=== PATIENT | female | born 1975 | race Caucasian/White ===

== ENCOUNTER 2018-06-09 17:54 | Emergency (ER) | payer OTHER ==
[2018-06-09] MEDS ORDERED: LORazepam 2 MG/ML SDV IVPUSH ONE (17:56)
[2018-06-09] MEDS ORDERED: Sodium Chloride 0.9% 2.5 ML Syringe FLUSH PRN (17:56)
[2018-06-09] MEDS ORDERED: Sodium Chloride 0.9% 10 ML Syringe FLUSH PRN (17:56)
[2018-06-09] MEDS ORDERED: Albuterol/Ipratropium 3.0-0.5 MG/3 ML Neb Soln NEB ONE (17:56)
[2018-06-09] MEDS ORDERED: methylPREDNISolone Sodium Succinate 125 MG/2 ML SDV IVPUSH ONE (17:56)
[2018-06-09] MEDS ORDERED: Sodium Chloride 0.9% 1,000 ML IV ONE (17:56)
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
--- NOTE | 2018-06-09 19:05 | CR ---
HISTORY: Shortness of breath. TECHNIQUE: One view of the chest. COMPARISON: No prior. FINDINGS: There is no acute lung infiltrate or pulmonary edema. No pneumothorax or pleural effusion. Cardiac size is upper limits of normal accounting for technique. IMPRESSION: No acute lung infiltrate or pulmonary edema. Dictated by Jakub Lovell MD @ 06/09/2018 7:05:12 PM Dictated by: Jakub Lovell MD @ 06/09/2018 19:05:18 (Electronically Signed)
[2018-06-09 19:22] LABS: CHLORIDE,CL 107 mmol/L (98-107); SODIUM,NA 141 mmol/L (136-145)
[2018-06-09 19:51] VITALS: BP 122/88
== END 2018-06-09 19:51 | disposition home or self-care (01) ==
LOC: MW.ED 17:54
DX: J45.901 Unspecified asthma with (acute) exacerbation (principal); I10 Essential (primary) hypertension; Z88.5 Allergy status to narcotic agent; Z88.8 Allergy status to other drugs, medicaments and biological substances; Z79.899 Other long term (current) drug therapy; R06.4 Hyperventilation
CPT/HCPCS: 36415; 71045; 80053; 84484; 85025; 87804; 93005; 96361; 96374; 96375; 99285; J2060; J2930; J7040; 99283; J7620-GY

== ENCOUNTER 2018-11-12 14:03 | Emergency (ER) | payer OTHER ==
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
[2018-11-12] MEDS ORDERED: Sodium Chloride 0.9% 2.5 ML Syringe FLUSH PRN (14:12)
[2018-11-12] MEDS ORDERED: Sodium Chloride 0.9% 10 ML Syringe FLUSH PRN (14:12)
[2018-11-12] MEDS ORDERED: Sodium Chloride 0.9% 1,000 ML IV ONE (14:12)
[2018-11-12] MEDS ORDERED: Ondansetron 4 MG/2 ML SDV IVPUSH ONE (14:40)
[2018-11-12] MEDS ORDERED: Meclizine 25 MG Tab PO ONE (14:40)
[2018-11-12 14:48] LABS: BLOOD UREA NITROGEN,BUN 13 mg/dL (7.0-18.0); CARBON DIOXIDE,CO2 26.1 mmol/L (21.0-32.0); CHLORIDE,CL 107 mmol/L (98-107); GLUCOSE RANDOM 123 mg/dL (74-106); SODIUM,NA 142 mmol/L (136-145)
[2018-11-12 15:46] VITALS: BP 146/93; PULSE 64
== END 2018-11-12 15:42 | disposition home or self-care (01) ==
LOC: MW.ED 14:03
DX: H81.10 Benign paroxysmal vertigo, unspecified ear (principal); I10 Essential (primary) hypertension; Z79.899 Other long term (current) drug therapy; Z88.5 Allergy status to narcotic agent; Z88.8 Allergy status to other drugs, medicaments and biological substances
CPT/HCPCS: 36415; 80053; 81001; 85025; 93005; 96361; 96374; 99284; A9270; J2405; J7040; 99283

== ENCOUNTER 2019-01-19 10:24 | Emergency (ER) | payer OTHER ==
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
--- NOTE | 2019-01-19 11:24 | CR ---
Chest: Frontal view of the chest was obtained. Comparison: Prior chest x-ray of 06/09/18. Heart size and mediastinum are normal. Lungs are clear. Bony structures are grossly intact. Impression: Nothing acute is seen on frontal chest x-ray. Diagnostic code #1 This report was dictated in [place] Standard Time MTDD
[2019-01-19 11:48] VITALS: BP 136/69; PULSE 75
== END 2019-01-19 11:35 | disposition home or self-care (01) ==
LOC: MW.ED 10:24
DX: J11.1 Influenza due to unidentified influenza virus with other respiratory manifestations (principal); I10 Essential (primary) hypertension; Z88.5 Allergy status to narcotic agent; Z88.8 Allergy status to other drugs, medicaments and biological substances; Z79.899 Other long term (current) drug therapy
CPT/HCPCS: 71045; 71045-26; 87081; 87804; 87880-QW; 99283; 99283-25

== ENCOUNTER 2020-05-29 21:19 | Emergency (ER) | payer SELFPAY ==
[2020-05-29] MEDS ORDERED: Sodium Chloride 0.9% 2.5 ML Syringe FLUSH PRN (23:03)
[2020-05-29] MEDS ORDERED: Sodium Chloride 0.9% 10 ML Syringe FLUSH PRN (23:03)
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
--- NOTE | 2020-05-29 23:40 | CR ---
Indication: Cough Technique: Chest 1 view Comparison: Chest x-ray 01/19/2019 Findings/Impression: Cardiovascular and mediastinum: Heart size and vasculature are normal in caliber and appearance. Lungs and pleural space: Lungs are clear. No sign of infiltrate or mass. No sign of pleural effusion. No pneumothorax. Bones and soft tissues: No acute findings. Dictated by Colt Fernández MD @ 05/29/2020 11:39:[address] Colt Fernández @ May 29 2020 11:39PM
[2020-05-29 23:53] LABS: BLOOD UREA NITROGEN,BUN 8 mg/dL (7.0-18.0); CARBON DIOXIDE,CO2 23.9 mmol/L (21.0-32.0); CHLORIDE,CL 105 mmol/L (98-107); GLUCOSE RANDOM 211 mg/dL (74-106); SODIUM,NA 141 mmol/L (136-145)
[2020-05-30] MEDS ORDERED: Albuterol 6.7 GM Inhaler INH SCH (00:45)
[2020-05-30] MEDS ORDERED: Albuterol 8 GM Inhaler INH ONE (00:51)
[2020-05-30 01:30] VITALS: BP 110/58; PULSE 76
== END 2020-05-30 01:30 | disposition home or self-care (01) ==
LOC: MW.ED 21:19
DX: J20.9 Acute bronchitis, unspecified (principal); I10 Essential (primary) hypertension; Z88.5 Allergy status to narcotic agent; Z88.8 Allergy status to other drugs, medicaments and biological substances; Z20.822 Contact with and (suspected) exposure to COVID-19
CPT/HCPCS: 36415; 71045; 71045-26; 80053; 84484; 84703; 85025; 99285-25; A9270-GY; U0002

== ENCOUNTER 2020-10-24 16:14 | Emergency (ER) | payer SELFPAY ==
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
--- NOTE | 2020-10-24 16:49 | PCM.EKG ---
#1 Interpretation EKG Date: 10/24/20 Time: 16:48 EKG Interpretation Comments: Sinus rhythm rate of 93. Slight right axis deviation no acute ischemia QTC normal 482
[2020-10-24 17:35] LABS: BLOOD UREA NITROGEN,BUN 6 mg/dL (7.0-18.0); CARBON DIOXIDE,CO2 24.9 mmol/L (21.0-32.0); CHLORIDE,CL 103 mmol/L (98-107); GLUCOSE RANDOM 148 mg/dL (74-106); POTASSIUM,K 3.7 mmol/L (3.5-5.1); SODIUM,NA 139 mmol/L (136-145)
--- NOTE | 2020-10-24 17:52 | CR ---
INDICATION: SOB TECHNIQUE: Chest 1 view. COMPARISON: None. FINDINGS: Cardiovascular and mediastinum: Heart size and vasculature are normal in caliber and appearance. Mediastinum is within normal limits. Lungs and pleural space: Lungs are clear. No sign of infiltrate or mass. No sign of pleural effusion. No pneumothorax. Bones and soft tissues: No significant findings. IMPRESSION: Unremarkable chest. Dictated by: Johnnie Marcos MD @ 10/24/2020 17:50:32 (Electronically Signed)
[2020-10-24 18:10] VITALS: BP 132/61; PULSE 84
== END 2020-10-24 18:10 | disposition home or self-care (01) ==
LOC: MW.ED 16:14
DX: B34.9 Viral infection, unspecified (principal); I10 Essential (primary) hypertension; Z88.5 Allergy status to narcotic agent; Z88.8 Allergy status to other drugs, medicaments and biological substances; Z20.822 Contact with and (suspected) exposure to COVID-19
CPT/HCPCS: 36415; 71045; 71045-26; 80053; 85025; 93005; 99284-25; U0002

== ENCOUNTER 2020-11-17 21:02 | Emergency (ER) | payer SELFPAY ==
[2020-11-18] MEDS ORDERED: Acetaminophen/oxyCODONE 325-5 MG Tab PO ONE (00:42)
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
--- NOTE | 2020-11-18 01:20 | CR ---
INDICATION: Pain. Limited mobility. No trauma. COMPARISON: None. FINDINGS/IMPRESSION: Left knee, four views. Evaluation is limited by large body habitus and suboptimal positioning. No fractures are identified. Bony alignment is within normal limits. Joint spaces appear preserved. No evidence of a knee joint effusion is noted. Dictated by Vik Crain MD @ 11/18/2020 1:18:08 AM Dictated by: Vik Crain MD @ 11/18/2020 01:19:31 (Electronically Signed)
[2020-11-18 03:28] VITALS: BP 141/78; PULSE 90
== END 2020-11-18 02:00 | disposition home or self-care (01) ==
LOC: MW.ED 21:02
DX: S83.92XA Sprain of unspecified site of left knee, initial encounter (principal); I10 Essential (primary) hypertension; Z88.5 Allergy status to narcotic agent; Z88.8 Allergy status to other drugs, medicaments and biological substances; W22.09XA Striking against other stationary object, initial encounter
CPT/HCPCS: 73562; 99283; A9270

== ENCOUNTER 2020-12-19 18:09 | Emergency (ER) | payer SELFPAY ==
[2020-12-19] MEDS ORDERED: Sodium Chloride 0.9% 10 ML Syringe FLUSH PRN (18:58)
[2020-12-19] MEDS ORDERED: Sodium Chloride 0.9% 2.5 ML Syringe FLUSH PRN (18:58)
[2020-12-19] MEDS ORDERED: Sodium Chloride 0.9% 1,000 ML IV ONE (18:59)
[2020-12-19] MEDS ORDERED: Ondansetron 4 MG/2 ML SDV IVPUSH ONE (18:59)
[2020-12-19] MEDS ORDERED: Morphine 4 MG/ML VIAL IVPUSH ONE ×2 (19:00→20:54)
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
[2020-12-19 20:03] LABS: BLOOD UREA NITROGEN,BUN 13 mg/dL (7.0-18.0); CARBON DIOXIDE,CO2 26.8 mmol/L (21.0-32.0); CHLORIDE,CL 104 mmol/L (98-107); GLUCOSE RANDOM 124 mg/dL (74-106); POTASSIUM,K 4.6 mmol/L (3.5-5.1); SODIUM,NA 139 mmol/L (136-145)
[2020-12-19] MEDS ORDERED: Iopamidol 755 MG/ML 500 ML Multipack Bottle IVPUSH ONE (20:22)
--- NOTE | 2020-12-19 21:10 | CT ---
INDICATION: Right lower quadrant abdominal pain. TECHNIQUE: Multiple axial images were obtained from the diaphragm to the symphysis pubis after administration of 100 mL of Isovue-370 intravenously. Sagittal and coronal re-formatted images were obtained. COMPARISON: None. FINDINGS: The visualized portion of the lung bases are clear. There is no focal liver lesion. The gallbladder is surgically absent. This mildly prominent intra and extrahepatic biliary ducts consistent with a reservoir effect. The spleen, pancreas and adrenal glands are unremarkable. There is no mass or hydronephrosis in the kidneys. There is no evidence of a bowel obstruction. The appendix is visualized in the right lower quadrant and is unremarkable. There are diverticula in the descending and sigmoid colon. There is no evidence of a diverticulitis. There is a 3.4 x 2.6 cm right ovarian cyst. The abdominal aorta is normal in caliber. There is no adenopathy. There is no free fluid or pelvis. IMPRESSION: 1. 3.4 x 2.6 cm right ovarian cyst. 2. Normal appendix seen in the right lower quadrant. 3. Status post cholecystectomy. Prominent intra and extrahepatic biliary ducts consistent with a reservoir effect. 4. Diverticulosis. No evidence of a diverticulitis. Please note that all CT scans at this facility use dose modulation, iterative reconstruction, and/or weight-based dosing when appropriate to reduce radiation dose to as low as reasonably achievable. Dictated by Andi Chapin MD @ 12/19/2020 9:08:09 PM (Electronically Signed)
[2020-12-19 21:36] VITALS: BP 123/56; PULSE 74
== END 2020-12-19 21:35 | disposition home or self-care (01) ==
LOC: MW.ED 18:09
DX: R10.32 Left lower quadrant pain (principal); I10 Essential (primary) hypertension; Z88.5 Allergy status to narcotic agent; Z88.8 Allergy status to other drugs, medicaments and biological substances; Z72.0 Tobacco use
CPT/HCPCS: 36415; 74177; 80053; 81001; 85025; 96374; 96375; 96376; 99284; J2270; J2405; J7030; Q9967

== ENCOUNTER 2020-12-20 18:05 | Emergency (ER) | payer SELFPAY ==
[2020-12-20] MEDS ORDERED: Sodium Chloride 0.9% 2.5 ML Syringe FLUSH PRN (18:28)
[2020-12-20] MEDS ORDERED: Sodium Chloride 0.9% 10 ML Syringe FLUSH PRN (18:28)
[2020-12-20] MEDS ORDERED: Ondansetron 4 MG/2 ML SDV IVPUSH ONE (18:29)
[2020-12-20] MEDS ORDERED: Sodium Chloride 0.9% 1,000 ML IV ONE (18:29)
[2020-12-20] MEDS ORDERED: Morphine 4 MG/ML VIAL IVPUSH ONE (18:29)
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
[2020-12-20 19:08] LABS: BLOOD UREA NITROGEN,BUN 12 mg/dL (7.0-18.0); CARBON DIOXIDE,CO2 27.7 mmol/L (21.0-32.0); CHLORIDE,CL 103 mmol/L (98-107); GLUCOSE RANDOM 154 mg/dL (74-106); POTASSIUM,K 4.4 mmol/L (3.5-5.1); SODIUM,NA 139 mmol/L (136-145)
[2020-12-20 19:10] VITALS: BP 120/82; PULSE 85
== END 2020-12-20 19:45 | disposition left against medical advice (07) ==
LOC: MW.ED 18:05
DX: R10.32 Left lower quadrant pain (principal); R10.12 Left upper quadrant pain; I10 Essential (primary) hypertension; Z76.5 Malingerer [conscious simulation]; Z88.5 Allergy status to narcotic agent; Z88.6 Allergy status to analgesic agent; Z88.8 Allergy status to other drugs, medicaments and biological substances; Z79.899 Other long term (current) drug therapy
CPT/HCPCS: 36415; 80053; 85025; 96374; 96375; 99284; J2270; J2405; J7030

== ENCOUNTER 2021-02-13 10:57 | Emergency (ER) | payer MEDICAID ==
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
[2021-02-13 11:40] VITALS: BP 126/73; PULSE 65
[2021-02-13 12:19] LABS: CORONAVIRUS COVID-19 NAA POSITIVE (NEGATIVE); INFLUENZA A NAA NEGATIVE (NEGATIVE); INFLUENZA B NAA NEGATIVE (NEGATIVE)
== END 2021-02-13 12:49 | disposition home or self-care (01) ==
LOC: MW.ED 10:57
DX: U07.1 COVID-19 (principal); I10 Essential (primary) hypertension; Z88.5 Allergy status to narcotic agent; Z88.8 Allergy status to other drugs, medicaments and biological substances; Z79.899 Other long term (current) drug therapy
CPT/HCPCS: 0240U; 99283

== ENCOUNTER 2021-09-21 17:16 | Emergency (ER) | payer MEDICAID | END 2021-09-21 19:00 | disposition left against medical advice (07) | LOC: MW.ED 17:16 | DX: Z53.21 Procedure and treatment not carried out due to patient leaving prior to being seen by health care provider (principal) ==

== ENCOUNTER 2022-09-12 10:38 | Emergency (ER) | payer MEDICAID ==
[2022-09-12] MEDS ORDERED: Sodium Chloride 0.9% 1,000 ML IV ONE (10:54)
[2022-09-12] MEDS ORDERED: LORazepam 2 MG/ML SDV IVPUSH ONE (10:54)
[2022-09-12 11:15] LABS: BASOPHILS ABSOLUTE AUTO 0.1 K/uL (0.0-0.1); EOSINOPHILS ABSOLUTE AUTO 0.3 K/uL (0.0-0.7); HEMATOCRIT 42.2 % (36.0-46.0); HEMOGLOBIN 13.7 g/dL (12.0-16.0); LYMPHOCYTES ABSOLUTE AUTO 2.1 K/uL (0.6-2.4); LYMPHOCYTES PERCENT AUTO 25.7 % (16.0-40.0); MEAN CORPUSCULAR HEMOGLOBIN 27.7 pg (27.0-32.0); MEAN CORPUSCULAR HGB CONC 32.5 g/dL (31.0-37.0); MEAN CORPUSCULAR VOLUME 85.3 fL (80.0-98.0); MONOCYTES ABSOLUTE AUTO 0.7 K/uL (0.0-0.8); MONOCYTES PERCENT AUTO 7.8 % (0.0-15.0); NEUTROPHILS ABSOLUTE AUTO 5.1 K/uL (1.4-5.7); NEUTROPHILS PERCENT AUTO 61.5 % (48.0-80.0); NRBC ABSOLUTE 0 K/uL; PLATELET COUNT,PLT 409 K/uL (150-400); RED BLOOD CELL COUNT 4.95 M/uL (4.30-5.90); WHITE BLOOD CELL COUNT,WBC 8.34 K/uL (4.0-11.0)
[2022-09-12 11:38] LABS: A/G RATIO 1.1 (0.9-1.6); ALBUMIN 3.9 g/dL (3.4-5.0); BILIRUBIN TOTAL 0.6 mg/dL (0.2-1.0); CALCIUM 8.9 mg/dL (8.5-10.1); CARBON DIOXIDE,CO2 27.3 mmol/L (21.0-32.0); EST CRCL DRUG DOSING (CG) 66.18 mL/min; POTASSIUM,K 3.4 mmol/L (3.5-5.1); PROTEIN TOTAL,TP 7.3 g/dL (6.4-8.2)
[2022-09-12 12:03] VITALS: BP 122/70; PULSE 87
== END 2022-09-12 12:02 | disposition home or self-care (01) ==
LOC: MW.ED 10:38
DX: G44.209 Tension-type headache, unspecified, not intractable (principal); I10 Essential (primary) hypertension; Z79.899 Other long term (current) drug therapy; Z88.6 Allergy status to analgesic agent; Z88.8 Allergy status to other drugs, medicaments and biological substances
CPT/HCPCS: 36415; 80053; 85025; 93005; 96361; 96374; 99283; J2060; J7030; 93010; 99284

== ENCOUNTER 2022-11-13 09:44 | Emergency (ER) | payer MEDICAID ==
[2022-11-13 10:29] VITALS: BP 159/96; PULSE 89
== END 2022-11-13 10:38 | disposition home or self-care (01) ==
LOC: MW.ED 09:44
DX: Z76.0 Encounter for issue of repeat prescription (principal); I10 Essential (primary) hypertension; Z79.899 Other long term (current) drug therapy; Z88.5 Allergy status to narcotic agent; Z88.6 Allergy status to analgesic agent; Z88.8 Allergy status to other drugs, medicaments and biological substances
CPT/HCPCS: 99281; 99283

== ENCOUNTER 2022-12-09 16:07 | Emergency (ER) | payer MEDICAID ==
[2022-12-09] MEDS ORDERED: Sodium Chloride 0.9% 1,000 ML IV ONE (16:13)
[2022-12-09] MEDS ORDERED: Famotidine 20 MG/2 ML SDV IVPUSH ONE (16:14)
[2022-12-09] MEDS ORDERED: diphenhydrAMINE 50 MG/ML SDV IVPUSH ONE (16:14)
[2022-12-09] MEDS ORDERED: Sodium Chloride 0.9% 2.5 ML Syringe FLUSH PRN (16:14)
[2022-12-09] MEDS ORDERED: EPINEPHrine 1 MG/1 ML Amp IM ONE (16:14)
[2022-12-09] MEDS ORDERED: Sodium Chloride 0.9% 10 ML Syringe FLUSH PRN (16:14)
[2022-12-09 16:37] LABS: BASOPHILS ABSOLUTE AUTO 0.03 K/uL (0.00-0.20); BASOPHILS PERCENT AUTO 0.1 % (0.0-1.0); HEMATOCRIT 40.2 % (37.0-47.0); HEMOGLOBIN 13.6 g/dL (12.0-16.0); IMMATURE GRAN ABSOLUTE AUTO 0.11 K/uL (0.00-0.05); IMMATURE GRAN PERCENT AUTO 0.5 % (0.0-0.4); LYMPHOCYTES ABSOLUTE AUTO 1.15 K/uL (1.00-4.80); MEAN CORPUSCULAR HEMOGLOBIN 28.3 pg (28.0-32.0); MEAN CORPUSCULAR HGB CONC 33.8 g/dL (32.0-36.0); MEAN CORPUSCULAR VOLUME 83.8 fL (83.0-99.0); MEAN PLATELET VOLUME 10.1 fL (9.4-12.3); MONOCYTES ABSOLUTE AUTO 0.56 K/uL (0.00-0.80); MONOCYTES PERCENT AUTO 2.5 % (0.0-8.0); NEUTROPHILS PERCENT AUTO 91.9 % (41.0-71.0); PLATELET COUNT,PLT 394 K/uL (150-400); WHITE BLOOD CELL COUNT,WBC 22.85 K/uL (3.9-11.3)
[2022-12-09 16:59] LABS: CALCIUM 9.1 mg/dL (8.5-10.1); CARBON DIOXIDE,CO2 24.6 mmol/L (21.0-32.0); CREATININE 0.9 mg/dL (0.6-1.0); EST CRCL DRUG DOSING (CG) 70.78 mL/min; POTASSIUM,K 4.5 mmol/L (3.5-5.1)
[2022-12-09] MEDS ORDERED: Lidocaine 4% 1 each Patch TOP STA (17:28)
[2022-12-09 20:30] VITALS: BP 134/85; PULSE 84
== END 2022-12-09 19:15 | disposition home or self-care (01) ==
LOC: MW.ED 16:07
DX: T78.2XXA Anaphylactic shock, unspecified, initial encounter (principal); I10 Essential (primary) hypertension; Z88.6 Allergy status to analgesic agent; Z88.5 Allergy status to narcotic agent; Z88.8 Allergy status to other drugs, medicaments and biological substances; Z79.899 Other long term (current) drug therapy
CPT/HCPCS: 36415; 80048; 85025; 96372; 96374; 96375; 99284; A9270; J0171; J1200; J3490; J7030

== ENCOUNTER 2023-01-03 10:43 | Emergency (ER) | payer MEDICAID ==
[2023-01-03] MEDS ORDERED: HYDROmorphone 1 MG/ML Syringe IVPUSH ONE (11:31)
[2023-01-03] MEDS ORDERED: Ondansetron 4 MG/2 ML SDV IVPUSH ONE (11:31)
[2023-01-03] MEDS ORDERED: Sodium Chloride 0.9% 1,000 ML IV ONE (11:31)
[2023-01-03 11:44] LABS: BASOPHILS ABSOLUTE AUTO 0.05 K/uL (0.00-0.20); BASOPHILS PERCENT AUTO 0.7 % (0.0-1.0); EOSINOPHILS ABSOLUTE AUTO 0.34 K/uL (0.00-0.45); EOSINOPHILS PERCENT AUTO 4.7 % (0.0-6.0); HEMATOCRIT 38.2 % (37.0-47.0); HEMOGLOBIN 12.8 g/dL (12.0-16.0); IMMATURE GRAN ABSOLUTE AUTO 0.02 K/uL (0.00-0.05); IMMATURE GRAN PERCENT AUTO 0.3 % (0.0-0.4); LYMPHOCYTES ABSOLUTE AUTO 1.62 K/uL (1.00-4.80); LYMPHOCYTES PERCENT AUTO 22.5 % (24.0-44.0); MEAN CORPUSCULAR HEMOGLOBIN 28.3 pg (28.0-32.0); MEAN CORPUSCULAR HGB CONC 33.5 g/dL (32.0-36.0); MEAN CORPUSCULAR VOLUME 84.3 fL (83.0-99.0); MEAN PLATELET VOLUME 9.7 fL (9.4-12.3); MONOCYTES PERCENT AUTO 5.5 % (0.0-8.0); NEUTROPHILS ABSOLUTE AUTO 4.78 K/uL (1.80-7.70); NEUTROPHILS PERCENT AUTO 66.3 % (41.0-71.0); PLATELET COUNT,PLT 319 K/uL (150-400); RED BLOOD CELL COUNT 4.53 M/uL (4.10-5.30); WHITE BLOOD CELL COUNT,WBC 7.21 K/uL (3.9-11.3)
[2023-01-03 12:23] LABS: ALBUMIN 3.5 g/dL (3.4-5.0); BILIRUBIN TOTAL 0.4 mg/dL (0.2-1.0); CALCIUM 8.9 mg/dL (8.5-10.1); CARBON DIOXIDE,CO2 25.9 mmol/L (21.0-32.0); CREATININE 0.7 mg/dL (0.6-1.0); EST CRCL DRUG DOSING (CG) 94.54 mL/min; PROTEIN TOTAL,TP 6.9 g/dL (6.4-8.2)
[2023-01-03 12:33] LABS: CORONAVIRUS COVID-19 NAA NEGATIVE (NEGATIVE); INFLUENZA A NAA NEGATIVE (NEGATIVE); INFLUENZA B NAA NEGATIVE (NEGATIVE); RESPIRATORY SYNCYTIAL VIR NAA NEGATIVE (NEGATIVE)
[2023-01-03 13:12] VITALS: BP 155/108; PULSE 56
== END 2023-01-03 13:12 | disposition home or self-care (01) ==
LOC: MW.ED 10:43
DX: G43.909 Migraine, unspecified, not intractable, without status migrainosus (principal); J01.30 Acute sphenoidal sinusitis, unspecified; I10 Essential (primary) hypertension; Z88.5 Allergy status to narcotic agent; Z88.6 Allergy status to analgesic agent; Z88.8 Allergy status to other drugs, medicaments and biological substances; Z79.899 Other long term (current) drug therapy; Z90.49 Acquired absence of other specified parts of digestive tract; Z20.822 Contact with and (suspected) exposure to COVID-19
CPT/HCPCS: 0241U; 36415; 70450; 80053; 85025; 93005; 96361; 96374; 96375; 99284; J1170; J2405; J7030; 93010

== ENCOUNTER 2023-01-19 17:29 | Emergency (ER) | payer MEDICAID | END 2023-01-19 19:15 | disposition left against medical advice (07) | LOC: MW.ED 17:29 | DX: Z53.21 Procedure and treatment not carried out due to patient leaving prior to being seen by health care provider (principal) ==

== ENCOUNTER 2023-01-20 15:44 | Emergency (ER) | payer MEDICAID ==
[2023-01-20 16:09] VITALS: BP 140/93; PULSE 76
[2023-01-20] MEDS ORDERED: HYDROmorphone 1 MG/ML Syringe IM ONE (16:11)
== END 2023-01-20 16:55 | disposition home or self-care (01) ==
LOC: MW.ED 15:44
DX: G89.29 Other chronic pain (principal); G60.9 Hereditary and idiopathic neuropathy, unspecified; I10 Essential (primary) hypertension; Z79.899 Other long term (current) drug therapy; Z90.49 Acquired absence of other specified parts of digestive tract; Z88.8 Allergy status to other drugs, medicaments and biological substances; Z88.5 Allergy status to narcotic agent
CPT/HCPCS: 96372; 99283; J1170

== ENCOUNTER 2023-05-05 12:51 | Emergency (ER) | payer MEDICAID ==
[2023-05-05] MEDS: Sodium Chloride 0.9% 1,000 ML IV ONE (13:32)
[2023-05-05] MEDS: Acetaminophen/Butalbital/Caffeine 325-50-40 MG Tab PO ONE (13:32)
[2023-05-05 13:40] LABS: BASOPHILS ABSOLUTE AUTO 0.05 K/uL (0.00-0.20); BASOPHILS PERCENT AUTO 0.8 % (0.0-1.0); EOSINOPHILS ABSOLUTE AUTO 0.43 K/uL (0.00-0.45); EOSINOPHILS PERCENT AUTO 6.8 % (0.0-6.0); HEMATOCRIT 36.4 % (37.0-47.0); HEMOGLOBIN 12.1 g/dL (12.0-16.0); IMMATURE GRAN ABSOLUTE AUTO 0.02 K/uL (0.00-0.05); IMMATURE GRAN PERCENT AUTO 0.3 % (0.0-0.4); LYMPHOCYTES ABSOLUTE AUTO 1.66 K/uL (1.00-4.80); LYMPHOCYTES PERCENT AUTO 26.1 % (24.0-44.0); MEAN CORPUSCULAR HEMOGLOBIN 28.1 pg (28.0-32.0); MEAN CORPUSCULAR HGB CONC 33.2 g/dL (32.0-36.0); MEAN CORPUSCULAR VOLUME 84.5 fL (83.0-99.0); MONOCYTES ABSOLUTE AUTO 0.37 K/uL (0.00-0.80); MONOCYTES PERCENT AUTO 5.8 % (0.0-8.0); NEUTROPHILS ABSOLUTE AUTO 3.82 K/uL (1.80-7.70); NEUTROPHILS PERCENT AUTO 60.2 % (41.0-71.0); PLATELET COUNT,PLT 295 K/uL (150-400); RED BLOOD CELL COUNT 4.31 M/uL (4.10-5.30); WHITE BLOOD CELL COUNT,WBC 6.35 K/uL (3.9-11.3)
[2023-05-05 14:14] LABS: APPEARANCE,URINE CLEAR; BILIRUBIN,URINE NEGATIVE (NEGATIVE); COLOR,URINE YELLOW; GLUCOSE,URINE NEGATIVE (NEGATIVE); KETONES,URINE NEGATIVE (NEGATIVE); LEUKOCYTE ESTERASE,URINE NEGATIVE (NEGATIVE); NITRITE,URINE NEGATIVE (NEGATIVE); OCCULT BLOOD,URINE TRACE-INTACT (NEGATIVE); PROTEIN,URINE NEGATIVE (NEGATIVE); UROBILINOGEN,URINE 0.2 EU/dL (<2.0)
[2023-05-05 14:17] LABS: CORONAVIRUS COVID-19 NAA NEGATIVE (NEGATIVE); INFLUENZA A NAA NEGATIVE (NEGATIVE); INFLUENZA B NAA NEGATIVE (NEGATIVE)
[2023-05-05 14:18] LABS: A/G RATIO 1.3 (0.9-1.6); ALANINE AMINOTRANSFERASE,ALT 23 IU/L (14-63); ALBUMIN 3.7 g/dL (3.4-5.0); ALKALINE PHOSPHATASE 88 U/L (46-116); ASPARTATE AMNIOTRANSFERASE,AST 16 IU/L (15-37); BILIRUBIN TOTAL 0.5 mg/dL (0.2-1.0); BLOOD UREA NITROGEN,BUN 10 mg/dL (7.0-18.0); CALCIUM 8.9 mg/dL (8.5-10.1); CARBON DIOXIDE,CO2 23.7 mmol/L (21.0-32.0); CHLORIDE,CL 105 mmol/L (98-107); CREATININE 0.8 mg/dL (0.6-1.0); EST CRCL DRUG DOSING (CG) 79.63 mL/min; GLUCOSE RANDOM 163 mg/dL (74-106); LIPASE 22 U/L (16-77); POTASSIUM,K 4.2 mmol/L (3.5-5.1); PROTEIN TOTAL,TP 6.6 g/dL (6.4-8.2); SODIUM,NA 140 mmol/L (136-145)
[2023-05-05 14:24] LABS: ESTIMATED GFR 90 mL/min (>60)
[2023-05-05 14:34] LABS: RBC,URINE NONE SEEN (0-2/HPF); WBC,URINE 0-1 (0-5/HPF)
[2023-05-05 14:35] LABS: BACTERIA,URINE RARE (NEGATIVE); EPITHELIAL CELLS,URINE RARE (NONE-FEW); MUCUS,URINE LIGHT (NONE-MOD)
[2023-05-05 15:06] VITALS: BP 145/59; PULSE 57
== END 2023-05-05 15:05 | disposition home or self-care (01) ==
LOC: MW.ED 12:51
DX: M25.512 Pain in left shoulder (principal); I10 Essential (primary) hypertension; Z88.5 Allergy status to narcotic agent; Z88.8 Allergy status to other drugs, medicaments and biological substances; Z79.899 Other long term (current) drug therapy; Z90.49 Acquired absence of other specified parts of digestive tract; Z75.8 Other problems related to medical facilities and other health care
CPT/HCPCS: 0240U; 36415; 71045; 80053; 81001; 83690; 84484; 85025; 93005; 96360; 99284; A9270; J7030; 93010; 99283

== ENCOUNTER 2023-06-02 13:47 | Emergency (ER) | payer MEDICAID ==
[2023-06-02] MEDS: LORazepam 2 MG/ML SDV IVPUSH ONE (14:15)
[2023-06-02] MEDS: Sodium Chloride 0.9% 10 ML Syringe FLUSH PRN (14:15)
[2023-06-02] MEDS: diphenhydrAMINE 50 MG/ML SDV IVPUSH ONE (14:15)
[2023-06-02 14:16] LABS: BASOPHILS ABSOLUTE AUTO 0.06 K/uL (0.00-0.20); BASOPHILS PERCENT AUTO 0.9 % (0.0-1.0); EOSINOPHILS ABSOLUTE AUTO 0.35 K/uL (0.00-0.45); EOSINOPHILS PERCENT AUTO 5.5 % (0.0-6.0); HEMATOCRIT 42.6 % (37.0-47.0); HEMOGLOBIN 13.7 g/dL (12.0-16.0); IMMATURE GRAN ABSOLUTE AUTO 0.01 K/uL (0.00-0.05); IMMATURE GRAN PERCENT AUTO 0.2 % (0.0-0.4); LYMPHOCYTES ABSOLUTE AUTO 1.95 K/uL (1.00-4.80); LYMPHOCYTES PERCENT AUTO 30.8 % (24.0-44.0); MEAN CORPUSCULAR HEMOGLOBIN 27.2 pg (28.0-32.0); MEAN CORPUSCULAR HGB CONC 32.2 g/dL (32.0-36.0); MEAN CORPUSCULAR VOLUME 84.5 fL (83.0-99.0); MEAN PLATELET VOLUME 10.3 fL (9.4-12.3); MONOCYTES ABSOLUTE AUTO 0.38 K/uL (0.00-0.80); NEUTROPHILS ABSOLUTE AUTO 3.59 K/uL (1.80-7.70); NEUTROPHILS PERCENT AUTO 56.6 % (41.0-71.0); PLATELET COUNT,PLT 344 K/uL (150-400); RED BLOOD CELL COUNT 5.04 M/uL (4.10-5.30); WHITE BLOOD CELL COUNT,WBC 6.34 K/uL (3.9-11.3)
[2023-06-02] MEDS: Sodium Chloride 0.9% 2.5 ML Syringe FLUSH PRN (14:16)
[2023-06-02] MEDS: Ketorolac 30 MG/ML SDV IVPUSH ONE (14:22)
[2023-06-02 14:48] LABS: A/G RATIO 1.3 (0.9-1.6); ALBUMIN 3.7 g/dL (3.4-5.0); BILIRUBIN TOTAL 0.3 mg/dL (0.2-1.0); CALCIUM 9.2 mg/dL (8.5-10.1); CARBON DIOXIDE,CO2 25.4 mmol/L (21.0-32.0); EST CRCL DRUG DOSING (CG) 63.71 mL/min; POTASSIUM,K 4.4 mmol/L (3.5-5.1); PROTEIN TOTAL,TP 6.6 g/dL (6.4-8.2); TSH ULTRASENSITIVE 1.61 uIU/mL (0.36-3.74)
[2023-06-02] MEDS: Sodium Chloride 0.9% 1,000 ML IV ONE (14:59)
[2023-06-02] MEDS: Ondansetron 4 MG/2 ML SDV IVPUSH ONE (14:59)
[2023-06-02 16:15] VITALS: BP 93/72; PULSE 99
== END 2023-06-02 16:13 | disposition home or self-care (01) ==
LOC: MW.ED 13:47
DX: G24.9 Dystonia, unspecified (principal); I10 Essential (primary) hypertension; R00.0 Tachycardia, unspecified; Z88.5 Allergy status to narcotic agent; Z88.6 Allergy status to analgesic agent; Z88.8 Allergy status to other drugs, medicaments and biological substances; Z79.899 Other long term (current) drug therapy; Z75.8 Other problems related to medical facilities and other health care; Z90.49 Acquired absence of other specified parts of digestive tract
CPT/HCPCS: 36415; 80053; 82947; 83735; 84443; 85025; 96374; 96375; 99284; J1200; J1885; J2060; J2405; J3490; J7030

== ENCOUNTER 2023-08-09 16:14 | Emergency (ER) | payer MEDICAID ==
[2023-08-09] MEDS: oxyCODONE 5 MG Tab PO ONE (17:15)
[2023-08-09 18:15] VITALS: BP 149/96; PULSE 63
== END 2023-08-09 18:23 | disposition home or self-care (01) ==
LOC: MW.ED 16:14
DX: S99.922A Unspecified injury of left foot, initial encounter (principal); I10 Essential (primary) hypertension; Z79.899 Other long term (current) drug therapy; Z88.8 Allergy status to other drugs, medicaments and biological substances; Z88.5 Allergy status to narcotic agent; Z88.6 Allergy status to analgesic agent; Z75.8 Other problems related to medical facilities and other health care; W10.9XXA Fall (on) (from) unspecified stairs and steps, initial encounter
CPT/HCPCS: 73562; 73610; 73630; 99283; A9270

== ENCOUNTER 2023-09-02 19:44 | Emergency (ER) | payer MEDICAID ==
[2023-09-02 20:57] LABS: HEMATOCRIT 37.1 % (37.0-47.0); HEMOGLOBIN 12.2 g/dL (12.0-16.0); IMMATURE GRAN ABSOLUTE AUTO 0.02 K/uL (0.00-0.05); IMMATURE GRAN PERCENT AUTO 0.3 % (0.0-0.4); MEAN CORPUSCULAR HEMOGLOBIN 27.5 pg (28.0-32.0); MEAN CORPUSCULAR HGB CONC 32.9 g/dL (32.0-36.0); MEAN CORPUSCULAR VOLUME 83.6 fL (83.0-99.0); MEAN PLATELET VOLUME 10.6 fL (9.4-12.3); PLATELET COUNT,PLT 223 K/uL (150-400); RED BLOOD CELL COUNT 4.44 M/uL (4.10-5.30)
[2023-09-02 21:08] LABS: INR 1.01 (0.86-1.11)
[2023-09-02 21:46] VITALS: BP 143/102; PULSE 75
== END 2023-09-02 21:45 | disposition home or self-care (01) ==
LOC: MW.ED 19:44
DX: N92.4 Excessive bleeding in the premenopausal period (principal); I10 Essential (primary) hypertension; Z90.49 Acquired absence of other specified parts of digestive tract; Z75.8 Other problems related to medical facilities and other health care; Z88.6 Allergy status to analgesic agent; Z88.5 Allergy status to narcotic agent; Z88.8 Allergy status to other drugs, medicaments and biological substances; Z79.899 Other long term (current) drug therapy
CPT/HCPCS: 36415; 76856; 76856-26; 84703; 85027; 85610; 99284

== ENCOUNTER 2024-01-03 14:50 | Emergency (ER) | payer MEDICAID ==
[2024-01-03] MEDS ORDERED: Sodium Chloride 0.9% 2.5 ML Syringe FLUSH PRN (15:05)
[2024-01-03] MEDS ORDERED: Sodium Chloride 0.9% 10 ML Syringe FLUSH PRN (15:05)
[2024-01-03] MEDS ORDERED: Naloxone 0.4 MG/ML SDV IVPUSH PRN (15:38)
[2024-01-03 15:40] LABS: BASOPHILS ABSOLUTE AUTO 0.05 K/uL (0.00-0.20); BASOPHILS PERCENT AUTO 0.7 % (0.0-1.0); EOSINOPHILS ABSOLUTE AUTO 0.34 K/uL (0.00-0.45); HEMOGLOBIN 11.6 g/dL (12.0-16.0); IMMATURE GRAN ABSOLUTE AUTO 0.03 K/uL (0.00-0.05); IMMATURE GRAN PERCENT AUTO 0.4 % (0.0-0.4); LYMPHOCYTES ABSOLUTE AUTO 1.73 K/uL (1.00-4.80); LYMPHOCYTES PERCENT AUTO 25.7 % (24.0-44.0); MEAN CORPUSCULAR HEMOGLOBIN 27.5 pg (28.0-32.0); MEAN CORPUSCULAR HGB CONC 32.2 g/dL (32.0-36.0); MEAN CORPUSCULAR VOLUME 85.3 fL (83.0-99.0); MEAN PLATELET VOLUME 9.4 fL (9.4-12.3); MONOCYTES ABSOLUTE AUTO 0.44 K/uL (0.00-0.80); MONOCYTES PERCENT AUTO 6.5 % (0.0-8.0); NEUTROPHILS ABSOLUTE AUTO 4.15 K/uL (1.80-7.70); NEUTROPHILS PERCENT AUTO 61.7 % (41.0-71.0); PLATELET COUNT,PLT 263 K/uL (150-400); RED BLOOD CELL COUNT 4.22 M/uL (4.10-5.30); WHITE BLOOD CELL COUNT,WBC 6.74 K/uL (3.9-11.3)
[2024-01-03] MEDS: fentaNYL 50 MCG/ML SDV IVPUSH ONE (15:43)
[2024-01-03 16:05] LABS: INR < 0.93 (0.86-1.11)
[2024-01-03 16:08] LABS: A/G RATIO 1.1 (0.9-1.6); ALBUMIN 3.3 g/dL (3.4-5.0); BILIRUBIN TOTAL 0.3 mg/dL (0.2-1.0); CALCIUM 8.7 mg/dL (8.5-10.1); CARBON DIOXIDE,CO2 30.4 mmol/L (21.0-32.0); CREATININE 0.9 mg/dL (0.6-1.0); EST CRCL DRUG DOSING (CG) 72.72 mL/min; POTASSIUM,K 4.2 mmol/L (3.5-5.1); PROTEIN TOTAL,TP 6.4 g/dL (6.4-8.2)
[2024-01-03 17:43] VITALS: BP 115/90; PULSE 72
== END 2024-01-03 17:43 | disposition home or self-care (01) ==
LOC: MW.ED 14:50
DX: M54.50 Low back pain, unspecified (principal); M25.551 Pain in right hip; M25.552 Pain in left hip; M53.3 Sacrococcygeal disorders, not elsewhere classified; I10 Essential (primary) hypertension; Z90.49 Acquired absence of other specified parts of digestive tract; Z88.5 Allergy status to narcotic agent; Z88.6 Allergy status to analgesic agent; Z88.8 Allergy status to other drugs, medicaments and biological substances; Z79.899 Other long term (current) drug therapy; Z75.8 Other problems related to medical facilities and other health care
CPT/HCPCS: 36415; 72128; 72131; 72192; 80053; 85025; 85610; 96374; 99284; J3010

== ENCOUNTER 2024-01-15 19:36 | Emergency (ER) | payer MEDICAID ==
[2024-01-15 20:01] VITALS: PULSE 82
[2024-01-15] MEDS: Diazepam 5 MG Tab PO ONE (21:12)
[2024-01-15 22:06] VITALS: BP 124/103
== END 2024-01-15 22:04 | disposition home or self-care (01) ==
LOC: MW.ED 19:36
DX: M79.605 Pain in left leg (principal); I10 Essential (primary) hypertension; Z90.49 Acquired absence of other specified parts of digestive tract; Z88.5 Allergy status to narcotic agent; Z88.6 Allergy status to analgesic agent; Z88.8 Allergy status to other drugs, medicaments and biological substances; Z79.899 Other long term (current) drug therapy
CPT/HCPCS: 73562; 99283; A9270

== ENCOUNTER 2024-04-08 16:00 | Emergency (ER) | payer MEDICAID ==
[2024-04-08] MEDS ORDERED: Sodium Chloride 0.9% 2.5 ML Syringe FLUSH PRN (17:11)
[2024-04-08] MEDS ORDERED: Sodium Chloride 0.9% 20 ML SDV IV PRN (17:11)
[2024-04-08] MEDS ORDERED: Sodium Chloride 0.9% 10 ML Syringe FLUSH PRN (17:11)
[2024-04-08 17:57] LABS: BASOPHILS ABSOLUTE AUTO 0.03 K/uL (0.00-0.20); BASOPHILS PERCENT AUTO 0.5 % (0.0-1.0); EOSINOPHILS ABSOLUTE AUTO 0.16 K/uL (0.00-0.45); EOSINOPHILS PERCENT AUTO 2.7 % (0.0-6.0); HEMATOCRIT 37.3 % (37.0-47.0); IMMATURE GRAN ABSOLUTE AUTO 0.05 K/uL (0.00-0.05); IMMATURE GRAN PERCENT AUTO 0.8 % (0.0-0.4); LYMPHOCYTES ABSOLUTE AUTO 0.57 K/uL (1.00-4.80); LYMPHOCYTES PERCENT AUTO 9.7 % (24.0-44.0); MEAN CORPUSCULAR HEMOGLOBIN 26.7 pg (28.0-32.0); MEAN CORPUSCULAR HGB CONC 32.2 g/dL (32.0-36.0); MEAN CORPUSCULAR VOLUME 82.9 fL (83.0-99.0); MEAN PLATELET VOLUME 9.5 fL (9.4-12.3); MONOCYTES ABSOLUTE AUTO 0.38 K/uL (0.00-0.80); MONOCYTES PERCENT AUTO 6.5 % (0.0-8.0); NEUTROPHILS PERCENT AUTO 79.8 % (41.0-71.0); PLATELET COUNT,PLT 217 K/uL (150-400); WHITE BLOOD CELL COUNT,WBC 5.89 K/uL (3.9-11.3)
[2024-04-08 18:18] LABS: CALCIUM 8.6 mg/dL (8.5-10.1); CARBON DIOXIDE,CO2 23.1 mmol/L (21.0-32.0); CREATININE 0.8 mg/dL (0.6-1.0); EST CRCL DRUG DOSING (CG) 78.76 mL/min; POTASSIUM,K 4.1 mmol/L (3.5-5.1)
[2024-04-08 18:27] LABS: LACTIC ACID 0.9 mmol/L (0.4-2.0)
[2024-04-08] MEDS: Acetaminophen 500 MG Tab PO ONE (19:26)
[2024-04-08] MEDS: Sodium Chloride 0.9% 1,000 ML IV ONE (19:26)
[2024-04-08] MEDS: Albuterol/Ipratropium 3.0-0.5 MG/3 ML Neb Soln NEB ONE (19:26)
[2024-04-08] MEDS: diphenhydrAMINE 25 MG Cap PO ONE (19:29)
[2024-04-08] MEDS: Albuterol/Ipratropium 3.0-0.5 MG/3 ML Neb Soln ONE (19:31)
[2024-04-08 19:50] LABS: APPEARANCE,URINE CLEAR; BILIRUBIN,URINE NEGATIVE (NEGATIVE); COLOR,URINE YELLOW; GLUCOSE,URINE NEGATIVE (NEGATIVE); KETONES,URINE NEGATIVE (NEGATIVE); LEUKOCYTE ESTERASE,URINE NEGATIVE (NEGATIVE); NITRITE,URINE NEGATIVE (NEGATIVE); OCCULT BLOOD,URINE NEGATIVE (NEGATIVE); PH,URINE 6.5 (5.0-8.0); PROTEIN,URINE NEGATIVE (NEGATIVE); UROBILINOGEN,URINE 0.2 EU/dL (<2.0)
[2024-04-08 20:17] VITALS: BP 150/91; PULSE 99
== END 2024-04-08 20:19 | disposition home or self-care (01) ==
LOC: MW.ED 16:00
DX: B34.9 Viral infection, unspecified (principal); I10 Essential (primary) hypertension; Z90.49 Acquired absence of other specified parts of digestive tract; Z88.5 Allergy status to narcotic agent; Z88.6 Allergy status to analgesic agent; Z88.8 Allergy status to other drugs, medicaments and biological substances; Z79.899 Other long term (current) drug therapy
CPT/HCPCS: 36415; 71046; 80048; 81003; 83605; 85025; 87040; 99284; A9270; J7030; J7620-GY

== ENCOUNTER 2024-09-15 14:36 | Emergency (ER) | payer MEDICAID ==
[2024-09-15 16:25] LABS: AMPHETAMINES SCREEN, URINE NEGATIVE (CUTOFF=500); BUPRENORPHINE SCREEN,URINE NEGATIVE (CUTOFF=10); METHADONE SCREEN, URINE NEGATIVE (CUTOFF=200); METHAMPHETAMINES SCREEN, URINE NEGATIVE (CUTOFF=500); OXYCODONE SCREEN,URINE PRESUMPTIVE POSITIVE (CUT0FF=100); PCP SCREEN,URINE NEGATIVE (CUTOFF=25); THC SCREEN,URINE 20 NG/ML NEGATIVE (CUTOFF=50)
[2024-09-15 17:32] VITALS: BP 156/89; PULSE 75
== END 2024-09-15 17:32 | disposition home or self-care (01) ==
LOC: MW.ED 14:36
DX: Z76.0 Encounter for issue of repeat prescription (principal)
CPT/HCPCS: 80305; 99282; 99283

== ENCOUNTER 2024-11-12 19:27 | Emergency (ER) | payer MEDICAID ==
[2024-11-12] MEDS ORDERED: Sodium Chloride 0.9% 2.5 ML Syringe FLUSH PRN (20:01)
[2024-11-12] MEDS ORDERED: Sodium Chloride 0.9% 10 ML Syringe FLUSH PRN (20:01)
[2024-11-12 20:05] LABS: BASOPHILS ABSOLUTE AUTO 0.06 K/uL (0.00-0.20); BASOPHILS PERCENT AUTO 0.8 % (0.0-1.0); EOSINOPHILS ABSOLUTE AUTO 0.38 K/uL (0.00-0.45); EOSINOPHILS PERCENT AUTO 5.2 % (0.0-6.0); IMMATURE GRAN ABSOLUTE AUTO 0.03 K/uL (0.00-0.05); IMMATURE GRAN PERCENT AUTO 0.4 % (0.0-0.4); LYMPHOCYTES ABSOLUTE AUTO 1.77 K/uL (1.00-4.80); LYMPHOCYTES PERCENT AUTO 24.1 % (24.0-44.0); MEAN PLATELET VOLUME 10.3 fL (9.4-12.3); MONOCYTES ABSOLUTE AUTO 0.46 K/uL (0.00-0.80); MONOCYTES PERCENT AUTO 6.3 % (0.0-8.0); NEUTROPHILS ABSOLUTE AUTO 4.64 K/uL (1.80-7.70); NEUTROPHILS PERCENT AUTO 63.2 % (41.0-71.0); NRBC ABSOLUTE 0.00 K/uL (0.00-0.02); NRBC PERCENT 0.0 /100WBC (0.0-0.2); PLATELET COUNT,PLT 294 K/uL (150-400); RED BLOOD CELL COUNT 4.27 M/uL (4.10-5.30); WHITE BLOOD CELL COUNT,WBC 7.34 K/uL (3.9-11.3)
[2024-11-12 20:23] LABS: A/G RATIO 1.2 (0.9-1.6); ALANINE AMINOTRANSFERASE,ALT 21 IU/L (14-63); ASPARTATE AMNIOTRANSFERASE,AST 13 IU/L (15-37); BILIRUBIN TOTAL 0.3 mg/dL (0.2-1.0); BLOOD UREA NITROGEN,BUN 12 mg/dL (7.0-18.0); CARBON DIOXIDE,CO2 25.8 mmol/L (21.0-32.0); CHLORIDE,CL 104 mmol/L (98-107); CREATININE 0.8 mg/dL (0.6-1.0); EST CRCL DRUG DOSING (CG) 77.88 mL/min; ESTIMATED GFR 89 mL/min (>60); GLUCOSE RANDOM 132 mg/dL (74-106); POTASSIUM,K 4.0 mmol/L (3.5-5.1); PROTEIN TOTAL,TP 6.3 g/dL (6.4-8.2); SODIUM,NA 140 mmol/L (136-145)
[2024-11-12 21:30] VITALS: BP 114/57; PULSE 70
== END 2024-11-12 21:29 | disposition home or self-care (01) ==
LOC: MW.ED 19:27
DX: R07.9 Chest pain, unspecified (principal); I10 Essential (primary) hypertension; E11.9 Type 2 diabetes mellitus without complications; Z75.3 Unavailability and inaccessibility of health-care facilities; Z88.5 Allergy status to narcotic agent; Z88.8 Allergy status to other drugs, medicaments and biological substances; Z79.899 Other long term (current) drug therapy; Z90.49 Acquired absence of other specified parts of digestive tract
CPT/HCPCS: 36415; 71046; 80053; 83690; 83735; 84484; 85025; 93005; 96360; 99285; A9270; J7030; 99283